=== PATIENT | female | born 1995 | race Hispanic/Latino ===

== ENCOUNTER 2023-12-28 12:49 | Inpatient (IN) | payer MEDICAID, OTHER, SELFPAY ==
[2023-12-25 15:05] LABS: Hematocrit 36.8 % (34.9-44.5); Hemoglobin 11.6 g/dL (12.0-15.5); Platelet Count 224 10x3/uL (150-450)
[2023-12-25 15:41] LABS: HBsAg Index 0.17 S/CO (0-0.99); Hep B Surf Ag Non-Reactive S/CO (NonReactive)
[2023-12-25 15:42] LABS: Syphilis Antibody Nonreactive (Nonreactive); Syphilis Antibody Index 0.07 S/CO (<1.00 Non-Reactive)
[2023-12-28 15:20] VITALS: BMI 29.5
[2023-12-28] MEDS ORDERED: Oxytocin 30 units/NS 500 ML 500 ML IV SCH (15:29)
[2023-12-28] MEDS ORDERED: Diphenoxylate HCl/Atropine Tablet PO PRN (15:29)
[2023-12-28] MEDS ORDERED: Methylergonovine 0.2 MG/ML VIAL IM PRN (15:29)
[2023-12-28] MEDS ORDERED: CEFAZOLIN 2 GM in Sodium Chloride 0.9% 100 ML IVPB SCH (15:29)
[2023-12-28] MEDS ORDERED: Famotidine/PF 20 mg/2ml Vial SLOW IVP PRN (15:29)
[2023-12-28] MEDS ORDERED: Carboprost 250 MCG/ML AMP IM PRN (15:29)
[2023-12-28] MEDS ORDERED: Promethazine HCl 25 MG/ML VIAL IM PRN ×4 (15:29→21:46)
[2023-12-28] MEDS ORDERED: Tranexamic Acid 1,000 MG/10 ML VIAL IVP PRN (15:29)
[2023-12-28] MEDS ORDERED: Misoprostol 200 MCG TAB PR PRN (15:29)
[2023-12-28] MEDS ORDERED: hydrALAZINE 20 MG/ML VIAL SLOW IVP PRN ×2 (15:29→21:46)
[2023-12-28] MEDS ORDERED: Bicitra 30 ML UDCUP PO PRN (15:29)
[2023-12-28] MEDS ORDERED: Ondansetron PF 4 MG/2 ML Vial IVP PRN ×3 (15:29→21:46)
[2023-12-28] MEDS ORDERED: fentaNYL 50 mcg/mL 1 mL Vial SLOW IVP PRN (18:00)
[2023-12-28] MEDS ORDERED: Meperidine HCl/PF 25 MG (1 mL) VIAL SLOW IVP PRN (18:00)
[2023-12-28] MEDS ORDERED: HYDROmorphone 0.5 MG/0.5 ML SYRINGE SLOW IVP PRN (18:00)
[2023-12-28] MEDS ORDERED: Communication Order-Pharmacy FS SCH (20:00)
[2023-12-28] MEDS ORDERED: Moisturizing Cream (Eucerin) 113 GM JAR TOP PRN (20:00)
[2023-12-28] MEDS ORDERED: diphenhydrAMINE 50 MG/ML VIAL IVP PRN (20:00)
[2023-12-28] MEDS ORDERED: Naloxone HCl 0.4 mg/ml Vial IV PRN (20:00)
[2023-12-28] MEDS ORDERED: Naloxone HCl 0.4 mg/ml Vial IVP PRN ×2 (20:00)
[2023-12-28] MEDS: Ondansetron PF 4 MG/2 ML Vial IVP PRN (20:59)
[2023-12-28] MEDS: Morphine PF 10 MG/10 ML VIAL ONE (21:41)
[2023-12-28] MEDS: Ondansetron PF 4 MG/2 ML Vial ONE (21:41)
[2023-12-28] MEDS: Dexmedetomidine 200 MCG/2 ML VIAL ONE (21:41)
[2023-12-28] MEDS: Oxytocin 10 UNITS/ML VIAL ONE (21:41)
[2023-12-28] MEDS: Ketorolac Tromethamine 30 MG (1 mL) VIAL ONE (21:41)
[2023-12-28] MEDS: Dexamethasone 10 MG/ML VIAL ONE (21:41)
[2023-12-28] MEDS: Lactated Ringer's 1,000 ML IV SCH (21:41)
[2023-12-28] MEDS: Famotidine/PF 20 mg/2ml Vial ONE (21:42)
[2023-12-28] MEDS: Phenylephrine 40 MG/NS 250 ML 250 ML ONE (21:42)
[2023-12-28] MEDS: ePHEDrine Sulfate 50 MG/10 ML VIAL ONE (21:42)
[2023-12-28] MEDS ORDERED: Lanolin Ointment 7 GM TUBE TOP PRN (21:46)
[2023-12-28] MEDS ORDERED: Bisacodyl 10 MG SUPP PR PRN (21:46)
[2023-12-28] MEDS ORDERED: Meperidine HCl/PF 25 MG (1 mL) VIAL IM PRN (21:46)
[2023-12-28] MEDS: Boostrix 0.5 ML (Tdap) VIAL (>/=7 yrs of age) IM ONE (22:41)
[2023-12-28] MEDS: Docusate 100 MG CAP PO SCH (22:41)
[2023-12-28] MEDS: Ferrous Sulfate 325 MG TAB PO SCH (22:42)
[2023-12-28] MEDS ORDERED: Ketorolac Tromethamine 30 MG (1 mL) VIAL IVP PRN (23:00)
[2023-12-29] MEDS: Ketorolac Tromethamine 30 MG (1 mL) VIAL IVP SCH
[2023-12-29 04:19] LABS: Hematocrit 30.6 % (34.9-44.5); Hemoglobin 9.8 g/dL (12.0-15.5); Mean Corpuscular Hemoglobin 25.7 pg (27.0-33.0); Mean Corpuscular Volume 80.1 fL (81.6-98.3); Mean Platelet Volume 11.4 fL (7.4-10.4); Platelet Count 176 10x3/uL (150-450); RBC Distribution Width 13.2 % (11.5-14.5); Red Blood Cell (RBC) Count 3.82 10x6/uL (3.90-5.03)
[2023-12-29] MEDS: diphenhydrAMINE 25 MG CAP PO PRN (13:10)
[2023-12-29] MEDS: Docusate 100 MG CAP PO SCH (13:10)
[2023-12-29] MEDS: Prenatal Vitamin 1 TAB PO SCH (13:10)
[2023-12-29] MEDS: Ferrous Sulfate 325 MG TAB PO SCH (13:10)
[2023-12-29] MEDS: HYDROcodone/Acetaminophen 5/325 mg Tablet PO PRN ×2 (15:40→19:30)
[2023-12-29] MEDS: Simethicone Chewable 80 MG TAB PO PRN (21:11)
[2023-12-29] MEDS: Ibuprofen 800 MG TAB PO SCH (21:11)
[2023-12-30] MEDS ORDERED: Ibuprofen 800 MG TAB PO SCH (06:00)
[2023-12-31 07:57] VITALS: BP 124/60; TEMP 98.3
== END 2023-12-31 19:05 | disposition home or self-care (01) | DRG 788 ==
LOC: CSHLD 14:59 → CSHPP 20:35
PROVIDERS: ADMIT Family Medicine; ATTEND Family Medicine
PROC: 10D00Z1 Extraction of Products of Conception, Low, Open Approach (ICD-10-PCS; principal; 2023-12-28)
DX: O34.211 Maternal care for low transverse scar from previous cesarean delivery (principal); Z79.899 Other long term (current) drug therapy; Z3A.39 39 weeks gestation of pregnancy; Z37.0 Single live birth
CPT/HCPCS: 36415; 51702; 85014; 85018; 85027; 85049; 86780; 86850; 86900; 86901; 87340; J1100; J1885; J2274; J2405; J2590; J3490; J7120

== ENCOUNTER 2024-02-07 12:22 | Emergency (ER) | payer MEDICAID ==
[2024-02-07 13:35] LABS: #Basophils 0.02 10x3/uL (0.0-0.2); #Monocytes 0.49 10x3/uL (0.0-1.1); #Neutrophils 4.53 10x3/uL (1.5-8.4); %Basophils 0.3 % (0.0-2.0); %Eosinophils 2.6 % (0.0-6.0); %Monocytes 6.4 % (0.0-10.0); %Neutrophils 59.3 % (40.0-75.0); Hemoglobin 13.2 g/dL (12.0-15.5); Mean Corpuscular HGB CONC 32.2 g/dL (32.0-36.0); Mean Corpuscular Hemoglobin 26.3 pg (27.0-33.0); Mean Corpuscular Volume 81.8 fL (81.6-98.3); Mean Platelet Volume 9.9 fL (7.4-10.4); Platelet Count 238 10x3/uL (150-450); RBC Distribution Width 15.9 % (11.5-14.5); Red Blood Cell (RBC) Count 5.01 10x6/uL (3.90-5.03); White Blood Cell (WBC) Count 7.6 10x3/uL (3.5-10.5)
[2024-02-07 13:39] LABS: Bilirubin Neg (Negative); Blood, Urine Negative (Negative); Clarity Clear (Clear); Glucose, Urine (Dipstick) Normal (Negative); Ketone, Urine Negative (Negative); Leukocyte Negative (Negative); Nitrite Negative (Negative); Protein, Urine (Dipstick) Negative (Neg-Trace); Urobilinogen Normal mg/dL (Less than 2)
[2024-02-07 13:49] LABS: Bacteria/HPF Rare-Few HPF (None Seen); CAUTI Indications for Culture Pelvic or flank pain; RBC/HPF None Seen HPF (0-3); Squamous Epithelial 0-3 HPF (0-3); WBC/HPF 0-3 HPF (0-3)
[2024-02-07 13:51] LABS: ALT (SGPT) 59 U/L (8-55); AST (SGOT) 35 U/L (5-34); Albumin 4.1 g/dL (3.5-5.0); Alkaline Phosphatase 113 U/L (40-110); Anion Gap 12 mmol/L (10-20); BUN (Urea Nitrogen) 11 mg/dL (7.0-18.7); Bilirubin, Total 0.4 mg/dL (0.2-1.2); Calc. Creatinine Clearance 0 mL/min (70-130); Calcium 9.9 mg/dL (7.8-10.44); Carbon Dioxide 25 mmol/L (22-29); Chloride 106 mmol/L (98-107); Estimated GFR 113; Globulin 3.5 g/dL (2.4-3.5); Glucose 91 mg/dL (70-105); Potassium 4.2 mmol/L (3.5-5.1); Protein, Total 7.6 g/dL (6.0-8.3); Sodium 139 mmol/L (136-145)
[2024-02-07 13:51] LABS: Urine Culture Reflex No No
== END 2024-02-07 15:05 | disposition home or self-care (01) ==
LOC: CSHERS 12:22
DX: R10.32 Left lower quadrant pain (principal); Z55.6 Problems related to health literacy
CPT/HCPCS: 36415; 74176; 80053; 81001; 83690; 85025